=== PATIENT | male | born 1975 | race Caucasian/White ===

== ENCOUNTER 2021-01-04 18:41 | Emergency (ER) | payer SELFPAY ==
--- NOTE | 2021-01-04 19:15 | NUR ---
PT CALLED INSIDE AND OUTSIDE. NO ANSWER.
--- NOTE | 2021-01-04 19:50 | NUR ---
PT CALLED INSIDE LOBBY AND OUTSIDE. NO ANSWER.
--- NOTE | 2021-01-04 20:03 | NUR ---
PATIENT LEFT WITHOUT BEING SEEN BY DR. TURCIOS. NO FURTHER CARE PROVIDED FOR PATIENT.
== END 2021-01-04 19:15 | disposition left against medical advice (07) ==
LOC: MED 18:41
DX: R50.9 Fever, unspecified (principal); Z53.21 Procedure and treatment not carried out due to patient leaving prior to being seen by health care provider